=== PATIENT | female | born 1995 | race Caucasian/White ===

== ENCOUNTER 2016-06-29 13:21 | Emergency (ER) | payer BC, MEDICAID, OTHER ==
[2016-06-29] MEDS ORDERED: Sodium Chloride 0.9% 1,000 ML IV ONE (13:27)
[2016-06-29] MEDS ORDERED: Sodium Chloride 0.9% 10 ML Syringe FLUSH PRN (13:27)
[2016-06-29] MEDS ORDERED: Sodium Chloride 0.9% 2.5 ML Syringe FLUSH PRN (13:27)
--- NOTE | 2016-06-29 13:27 | EDM.PDOC ---
ED HPI - General Stated Complaint: 3 MONTH PREG AND DEHYDRATED Time Seen by Provider: 06/29/16 13:45 Source of Information: Reports: Patient History Limitations: Reports: No limitations - History of Present Illness INITIAL COMMENTS - FREE TEXT/NARRATIVE: HISTORY AND PHYSICAL: [21-year-old female who felt nauseous and passed out this morning] History of Present Illness: [Patient has seen her [employer] for intake exam and was told to take B12. Appointment is scheduled for the of this month Dr. Llanes She is 3 months into her ] Review of Systems: As per history of present illness and below otherwise all systems reviewed and negative. Past medical history: As per history of present illness and as reviewed below otherwise noncontributory. Surgical history: As per history of present illness and as reviewed below otherwise noncontributory. Social history: No reported history of drug or alcohol abuse. Family history: As per history of present illness and as reviewed below otherwise noncontributory. Physical exam: Alert and oriented, very pale. Answering questions appropriately HEENT: Atraumatic, normocehpalic, pupils reactive, negative for conjunctival pallor or scleral icterus, mucous membranes dry, throat clear, neck supple, nontender, trachea midline. Lungs: Clear to auscultation, breath sounds equal bilaterally, chest non tender. Heart: S1S2, regular, negative for clicks, rubs, or JVD. Abdomen: Soft, nondistended, nontender. Negative for masses or hepatossplenmegaly. Negative for costovertebral tenderness. Pelvis: Stable nontender. 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: Deferred. Rectal: Deferred Extremities: Atraumatic, negative for cords or calf pain. Neurovascular unremarkable. Neuro: Awake, alert, oriented. Cranial nerves II through XII unremarkable. Cerebellum unremarkable. Motor and sensory unremarkable throughout. Exam nonfocal. Diagnostics: [CBC CMP] Therapeutics: [IV fluid, zofran 4 mg] Impression: [Hyperemesis ] Plan: [follow up with Dr. Rodriguez as scheduled] Definitive disposition and diagnosis as appropriate pending reevaluation and review of above. Timing/Duration: Reports: Week(s): Location, : Reports: abdomen, other (nausea) Severity: moderate Improves with: Reports: None Worsens with: Reports: Movement Treatments DIRECTOR VETERINARY: Reports: Other (see below) (Vitamin B12) - Related Data Allergies/ADRs: Allergies Allergy/AdvReac Type Severity Reaction Status Date / Time Latex, Natural Rubber Allergy Swelling Verified 11/10/15 13:22 Home Meds: Home Meds Vits #90/Iron Fum/FA [ Formula] 06/29/16 [History] Past Medical History - Past Health History Medical/Surgical History: Denies Medical/Surgical History - Infectious Disease History Infectious Disease History: Reports: Chicken pox, Mononucleosis Social & Family History - Family History Family Medical History: Noncontributory - Tobacco Use Smoking Status *Q: Never Smoker Second Hand Smoke Exposure: Yes - Recreational Drug Use Recreational Drug Use: No ED ROS GENERAL - Review of Systems Review Of Systems: ROS reveals no pertinent complaints other than HPI. ED EXAM - Physical Exam Exam: See Below (see dictation) Course - Vital Signs Last Recorded V/S: Last Vital Signs Temp 36.4 C 06/29/16 13:50 Pulse 78 06/29/16 13:50 Resp 18 06/29/16 13:50 BP 113/84 06/29/16 13:50 Pulse Ox 100 06/29/16 13:50 - Orders/Labs/Meds Orders: Active Orders 24 hr Category Date Time Status Sodium Chloride 0.9% [Saline Flush] Med 06/29/16 13:27 Active 10 ml FLUSH ASDIRECTED PRN Sodium Chloride 0.9% [Saline Flush] Med 06/29/16 13:27 Active 2.5 ml FLUSH ASDIRECTED PRN Saline Lock Insert [OM.PC] Stat Oth 06/29/16 13:27 Ordered Medication Orders Sodium Chloride (Saline Flush) 10 ml FLUSH ASDIRECTED PRN PRN Reason: Keep Vein Open Sodium Chloride (Saline Flush) 2.5 ml FLUSH ASDIRECTED PRN PRN Reason: Keep Vein Open Labs: Laboratory Tests 06/29/16 06/29/16 Range/Units 13:59 13:59 WBC 7.25 (4.0-11.0) K/uL RBC 4.50 (4.30-5.90) M/uL Hgb 12.7 (12.0-16.0) g/dL Hct 38.7 (36.0-46.0) % MCV 86.0 (80.0-98.0) fL MCH 28.2 (27.0-32.0) pg MCHC 32.8 (31.0-37.0) g/dL RDW Std Deviation 42.5 (28.0-62.0) fl RDW Coeff of Kiara 14 (11.0-15.0) % Plt Count 262 (150-400) K/uL MPV 10.40 (7.40-12.00) fL Neut % (Auto) 63.5 (48.0-80.0) % Lymph % (Auto) 29.0 (16.0-40.0) % [place] % (Auto) 6.8 (0.0-15.0) % Eos % (Auto) 0.6 (0.0-7.0) % Baso % (Auto) 0.1 (0.0-1.5) % Neut # 4.6 (1.4-5.7) K/uL Lymph # 2.1 (0.6-2.4) K/uL [place] # 0.5 (0.0-0.8) K/uL Eos # 0.0 (0.0-0.7) K/uL Baso # 0.0 (0.0-0.1) K/uL Nucleated RBC % 0.0 /100WBC Nucleated RBCs # 0 K/uL Sodium 134 L (136-146) mmol/L Potassium 4.1 (3.5-5.1) mmol/L Chloride 104 (98-110) mmol/L Carbon Dioxide 21 (21-31) mmol/L BUN 10 (6.0-23.0) mg/dL Creatinine 0.7 (0.6-1.5) mg/dL Est Cr Clr Drug Dosing TNP Estimated GFR (MDRD) > 60.0 ml/min Glucose 83 (60-110) mg/dL Calcium 9.4 (8.8-10.8) mg/dL Total Bilirubin 0.3 (0.1-1.5) mg/dL AST 20 (5-40) IU/L ALT 24 (8-54) IU/L Alkaline Phosphatase 57 (40-150) Total Protein 7.5 (6.0-8.0) g/dL Albumin 4.0 (3.5-5.0) g/dL Globulin 3.5 (2.0-3.5) g/dL Albumin/Globulin Ratio 1.1 L (1.3-2.8) Meds: Medications Generic Name Dose Route Start Last Admin Trade Name Freq PRN Reason Stop Dose Admin Sodium Chloride 10 ml 06/29/16 13:27 Saline Flush FLUSH ASDIRECTED PRN Keep Vein Open Sodium Chloride 2.5 ml 06/29/16 13:27 Saline Flush FLUSH ASDIRECTED PRN Keep Vein Open Discontinued Medications Generic Name Dose Route Start Last Admin Trade Name Freq PRN Reason Stop Dose Admin Sodium Chloride 1,000 mls @ 999 mls/hr 06/29/16 13:27 06/29/16 13:59 Normal Saline IV 06/29/16 14:27 999 mls/hr STAT ONE Administration Ondansetron HCl 4 mg 06/29/16 13:45 06/29/16 13:59 Zofran IVPUSH 06/29/16 13:46 4 mg ONETIME ONE Administration Departure - Departure Time of Disposition: 14:52 Disposition: Home, Self-Care 01 Condition: good Clinical Impression: Hyperemesis gravidarum Instructions: Dehydration, Adult, [id number] Additional Instructions: The following information is given to patients seen in the emergency department who are being discharged to home. This information is to outline your options for follow-up care. We provide all patients seen in our emergency department with a follow-up referral. The need for follow-up, as well as the timing and circumstances, are variable depending upon the specifics of your emergency department visit. If you don't have a primary care physician on staff, we will provide you with a referral. We always advise you to contact your personal physician following an emergency department visit to inform them of the circumstance of the visit and for follow-up with them and/or the need for any referrals to a consulting specialist. The emergency department will also refer you to a specialist when appropriate. This referral assures that you have the opportunity for followup care with a specialist. All of these measure are taken in an effort to provide you with optimal care, which includes your followup. Under all circumstances we always encourage you to contact your private physician who remains a resource for coordinating your care. When calling for followup care, please make the office aware that this follow-up is from your recent emergency room visit. If for any reason you are refused follow-up, please contact the [facility] emergency department at and asked to speak to the emergency department charge nurse. Small sips every 20 minutes to 4 times a day Followup with Dr. Meza as scheduled on the . - My Orders Last 24 Hours: My Active Orders 06/29/16 13:27 Sodium Chloride 0.9% [Saline Flush] 10 ml FLUSH ASDIRECTED PRN Sodium Chloride 0.9% [Saline Flush] 2.5 ml FLUSH ASDIRECTED PRN Saline Lock Insert [OM.PC] Stat - Assessment/Plan Last 24 Hours: My Active Orders 06/29/16 13:27 Sodium Chloride 0.9% [Saline Flush] 10 ml FLUSH ASDIRECTED PRN Sodium Chloride 0.9% [Saline Flush] 2.5 ml FLUSH ASDIRECTED PRN Saline Lock Insert [OM.PC] Stat
[2016-06-29] MEDS ORDERED: Ondansetron 4 MG/2 ML SDV IVPUSH ONE (13:45)
[2016-06-29 14:29] LABS: CHLORIDE,CL 104 mmol/L (98-110); SODIUM,NA 134 mmol/L (136-146)
[2016-06-29 15:05] VITALS: BP 110/64
== END 2016-06-29 15:03 | disposition home or self-care (01) ==
LOC: MW.ED 13:21
DX: O21.0 Mild hyperemesis gravidarum (principal); Z91.040 Latex allergy status; Z3A.15 15 weeks gestation of pregnancy
CPT/HCPCS: 80053; 85025; 96361; 96374; 99284; J2405; J7040

== ENCOUNTER 2016-12-15 17:17 | Emergency (ER) | payer MEDICAID ==
--- NOTE | 2016-12-15 17:58 | EDM.PDOC ---
<Enrico Eric - Last Filed: 12/15/16 19:00> ED HPI GENERAL MEDICAL PROBLEM - General Chief Complaint: Chest Pain Stated Complaint: PT SICK Time Seen by Provider: 12/15/16 17:20 Source of Information: Reports: Patient History Limitations: Reports: No Limitations - History of Present Illness INITIAL COMMENTS - FREE TEXT/NARRATIVE: HISTORY AND PHYSICAL: History of present illness: This is a 21-year-old female at 36 weeks presenting to the emergency department with a chief complaint of shortness of breath. Onset since last night. Patient tells me that she get a B12 injection at her outpatient clinic and is shortness of breath along the chest pain began shortly thereafter. She tells me that she has been experiencing this discomfort and shortness of breath persistently since last night. She tells me that this is beyond her baseline shortness of breath. She declines any fevers, chills cough congestion nausea or vomiting. She has no other complaints. She denies any numbness or tingling. Review of systems: As per history of present illness and below otherwise all systems reviewed and negative. Past medical history: As per history of present illness and as reviewed below otherwise noncontributory. Surgical history: As per history of present illness and as reviewed below otherwise noncontributory. Social history: No reported history of drug or alcohol abuse. Family history: As per history of present illness and as reviewed below otherwise noncontributory. Physical exam: HEENT: Atraumatic, normocephalic, pupils reactive, negative for conjunctival pallor or scleral icterus, mucous membranes moist, throat clear, neck supple, nontender, trachea midline. Lungs: Clear to auscultation, breath sounds equal bilaterally, chest nontender. Heart: S1S2, negative for clicks, rubs, or JVD. Tachycardic Abdomen: Soft, nondistended, nontender. Negative for masses or hepatosplenomegaly. Negative for costovertebral tenderness. Pelvis: Stable nontender. 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: Deferred. Rectal: Deferred. Extremities: Atraumatic, negative for cords or calf pain. Neurovascular unremarkable. Neuro: Awake, alert, oriented. Cranial nerves II through XII unremarkable. Cerebellum unremarkable. Motor and sensory unremarkable throughout. Exam nonfocal. Diagnostics: CBC CMP troponin EKG BNP UA CT angiogram of the chest EKG: Sinus tachycardia Therapeutics: Impression: Plan: [] Definitive disposition and diagnosis as appropriate pending reevaluation and review of above. 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 Other OB/BYN History: gestational diabetes Hematologic History: Reports: Anemia, B12 Deficiency, Iron Deficiency - Infectious Disease History Infectious Disease History: Reports: Mononucleosis Social & Family History - Family History Family Medical History: Noncontributory - Tobacco Use Smoking Status *Q: Never Smoker Second Hand Smoke Exposure: No - Caffeine Use Caffeine Use: Reports: None - Recreational Drug Use Recreational Drug Use: No Course - Vital Signs Last Recorded V/S: Last Vital Signs Temp 97.4 F 12/15/16 17:25 Pulse 68 12/15/16 20:00 Resp 18 12/15/16 20:00 BP 105/69 12/15/16 20:00 Pulse Ox 97 12/15/16 20:00 - Orders/Labs/Meds Orders: Active Orders 24 hr Category Date Time Status EKG 12 Lead [EKG Documentation Completion] [RC] STAT Care 12/15/16 18:16 Active EKG Documentation Completion [RC] STAT Care 12/15/16 17:40 Active Ang Chest [CT] Stat Exams 12/15/16 17:52 Taken UA W/MICROSCOPIC [URIN] Stat Lab 12/15/16 20:10 Results Labs: Laboratory Tests 12/15/16 12/15/16 12/15/16 Range/Units 18:06 18:06 18:06 WBC 8.43 (4.0-11.0) K/uL RBC 3.41 L (4.30-5.90) M/uL Hgb 9.6 L (12.0-16.0) g/dL Hct 29.5 L (36.0-46.0) % MCV 86.5 (80.0-98.0) fL MCH 28.2 (27.0-32.0) pg MCHC 32.5 (31.0-37.0) g/dL RDW Std Deviation 44.7 (28.0-62.0) fl RDW Coeff of Kiara 15 (11.0-15.0) % Plt Count 225 (150-400) K/uL MPV 10.80 (7.40-12.00) fL Neut % (Auto) 72.6 (48.0-80.0) % Lymph % (Auto) 19.5 (16.0-40.0) % [place] % (Auto) 7.6 (0.0-15.0) % Eos % (Auto) 0.2 (0.0-7.0) % Baso % (Auto) 0.1 (0.0-1.5) % Neut # (Auto) 6.1 H (1.4-5.7) K/uL Lymph # (Auto) 1.6 (0.6-2.4) K/uL [place] # (Auto) 0.6 (0.0-0.8) K/uL Eos # (Auto) 0.0 (0.0-0.7) K/uL Baso # (Auto) 0.0 (0.0-0.1) K/uL Nucleated RBC % 0.0 /100WBC Nucleated RBCs # 0 K/uL INR 0.91 (0.86-1.11) Sodium 136 (136-146) mmol/L Potassium 4.0 (3.5-5.1) mmol/L Chloride 107 (98-110) mmol/L Carbon Dioxide 22 (21-31) mmol/L BUN 7 (6.0-23.0) mg/dL Creatinine 0.6 (0.6-1.5) mg/dL Est Cr Clr Drug Dosing 147.10 mL/min Estimated GFR (MDRD) > 60.0 ml/min Glucose 87 (60-110) mg/dL Calcium 9.1 (8.8-10.8) mg/dL Total Bilirubin 0.3 (0.1-1.5) mg/dL AST 16 (5-40) IU/L ALT 12 (8-54) IU/L Alkaline Phosphatase 114 (40-150) Troponin I (0.0-0.29) NG/ML B-Natriuretic Peptide (<100) PG/ML Total Protein 6.6 (6.0-8.0) g/dL Albumin 3.3 L (3.5-5.0) g/dL Globulin 3.3 (2.0-3.5) g/dL Albumin/Globulin Ratio 1.0 L (1.3-2.8) Lipase 68 (7-80) U/L Urine Color Urine Appearance Urine pH (5.0-8.0) Ur Specific [place] (1.001-1.035) Urine Protein (NEGATIVE) mg/dL Urine Glucose (UA) (NEGATIVE) mg/dL Urine Ketones (NEGATIVE) mg/dL Urine Occult Blood (NEGATIVE) Urine Nitrite (NEGATIVE) Urine Bilirubin (NEGATIVE) Urine Urobilinogen (<2.0) EU/dL Ur Leukocyte Esterase (NEGATIVE) 12/15/16 12/15/16 12/15/16 Range/Units 18:06 18:06 20:10 WBC (4.0-11.0) K/uL RBC (4.30-5.90) M/uL Hgb (12.0-16.0) g/dL Hct (36.0-46.0) % MCV (80.0-98.0) fL MCH (27.0-32.0) pg MCHC (31.0-37.0) g/dL RDW Std Deviation (28.0-62.0) fl RDW Coeff of Kiara (11.0-15.0) % Plt Count (150-400) K/uL MPV (7.40-12.00) fL Neut % (Auto) (48.0-80.0) % Lymph % (Auto) (16.0-40.0) % [place] % (Auto) (0.0-15.0) % Eos % (Auto) (0.0-7.0) % Baso % (Auto) (0.0-1.5) % Neut # (Auto) (1.4-5.7) K/uL Lymph # (Auto) (0.6-2.4) K/uL [place] # (Auto) (0.0-0.8) K/uL Eos # (Auto) (0.0-0.7) K/uL Baso # (Auto) (0.0-0.1) K/uL Nucleated RBC % /100WBC Nucleated RBCs # K/uL INR (0.86-1.11) Sodium (136-146) mmol/L Potassium (3.5-5.1) mmol/L Chloride (98-110) mmol/L Carbon Dioxide (21-31) mmol/L BUN (6.0-23.0) mg/dL Creatinine (0.6-1.5) mg/dL Est Cr Clr Drug Dosing mL/min Estimated GFR (MDRD) ml/min Glucose (60-110) mg/dL Calcium (8.8-10.8) mg/dL Total Bilirubin (0.1-1.5) mg/dL AST (5-40) IU/L ALT (8-54) IU/L Alkaline Phosphatase (40-150) Troponin I < 0.10 (0.0-0.29) NG/ML B-Natriuretic Peptide 105 H (<100) PG/ML Total Protein (6.0-8.0) g/dL Albumin (3.5-5.0) g/dL Globulin (2.0-3.5) g/dL Albumin/Globulin Ratio (1.3-2.8) Lipase (7-80) U/L Urine Color YELLOW Urine Appearance CLEAR Urine pH 8.0 (5.0-8.0) Ur Specific [place] 1.010 (1.001-1.035) Urine Protein NEGATIVE (NEGATIVE) mg/dL Urine Glucose (UA) NEGATIVE (NEGATIVE) mg/dL Urine Ketones 40 H (NEGATIVE) mg/dL Urine Occult Blood NEGATIVE (NEGATIVE) Urine Nitrite NEGATIVE (NEGATIVE) Urine Bilirubin NEGATIVE (NEGATIVE) Urine Urobilinogen 0.2 (<2.0) EU/dL Ur Leukocyte Esterase NEGATIVE (NEGATIVE) Meds: Medications Discontinued Medications Generic Name Dose Route Start Last Admin Trade Name Freq PRN Reason Stop Dose Admin Iopamidol 50 ml 12/15/16 18:36 12/15/16 18:37 Isovue Multipack-370 (76%) IVPUSH 12/15/16 18:37 50 ml ONETIME STA Administration Departure - Departure Disposition: Home, Self-Care 01 Clinical Impression: , Dyspnea - Discharge Information Forms: ED Department Discharge Additional Instructions: follow up with Dr Rodriguez as scheduled recheck promptly for worsening lay down on your left side if you feel light headed or short of breath. Keny Jerez MD <Keny Jerez - Last Filed: 12/15/16 20:36> ED ROS GENERAL - Review of Systems Review Of Systems: See Below (as per Dr Ruiz note) ED EXAM, GENERAL - Physical Exam Exam: See Below Free Text/Narrative:: as per Dr Ruiz's note Course - Re-Assessments/Exams Free Text/Narrative Re-Assessment/Exam: 12/15/16 20:33 I received a report from DR Lyles at about 1900. She reports that she feels normal movement now. I discussed with her regarding the normal chest CT findings. She verbalizes understanding. impression: dyspnea related to third trimester Departure - Departure Time of Disposition: 20:35 Condition: Good
[2016-12-15] MEDS ORDERED: Iopamidol 755 MG/ML 500 ML Multipack Bottle IVPUSH STA (18:36)
[2016-12-15 18:38] LABS: CHLORIDE,CL 107 mmol/L (98-110); SODIUM,NA 136 mmol/L (136-146)
[2016-12-15 21:12] VITALS: BP 106/62
--- NOTE | 2016-12-18 10:17 | CT ---
EXAM DATE: 12/15/16 PATIENT'S AGE: 21 Patient: VIRGEN CARRIZALES Facility: [place], [place] Site . Site : 1995 Study: CT Chest Angio [id number]/[id number] 7:06:50 PM Ordering Physician: Hernesto Weston Final Report: INDICATION: Chest discomfort. Rule out pulmonary embolism. 8 months . TECHNIQUE: Volumetric helical scanning of the thorax was performed during infusion of 50 cc of Isovue 370 contrast material IV, timing optimized for pulmonary arterial opacification. Coronal and sagittal reconstructions were obtained. COMPARISON: None. FINDINGS: The images are of acceptable quality and demonstrate uniform vascular enhancement within the pulmonary arteries. No pulmonary arterial filling defect is identified. The lungs are clear. No pleural effusion is demonstrated. No airway abnormality is evident. No mediastinal or hilar lymphadenopathy is demonstrated. The heart size is normal. Images of the upper abdomen are unremarkable. IMPRESSION: Negative chest CT. No evidence of pulmonary embolism and pneumonia. Please note that all CT scans at this facility use dose modulation, iterative reconstruction, and/or weight-based dosing when appropriate to reduce radiation dose to as low as reasonably achievable. Dictated by Jono Maldonado MD @ Dec 15 2016 7:26PM (Electronic Signature) Report Signed by Proxy. SAMMI
== END 2016-12-15 20:55 | disposition home or self-care (01) ==
LOC: MW.ED 17:17
DX: O99.89 Other specified diseases and conditions complicating pregnancy, childbirth and the puerperium (principal); R06.02 Shortness of breath; Z91.040 Latex allergy status; Z86.2 Personal history of diseases of the blood and blood-forming organs and certain disorders involving the immune mechanism; Z3A.36 36 weeks gestation of pregnancy
CPT/HCPCS: 71275; 80053; 81001; 83690; 83880; 84484; 85025; 85610; 93005; 99285; Q9967; 99283

== ENCOUNTER 2017-01-03 17:01 | Inpatient (IN) | payer MEDICAID, OTHER ==
[2017-01-03] MEDS ORDERED: Sodium Chloride 0.9% 2.5 ML Syringe FLUSH PRN (17:36)
[2017-01-03] MEDS ORDERED: Water For Irrigation,Sterile 1,000 ML Container IRR PRN (17:36)
[2017-01-03] MEDS ORDERED: Terbutaline 1 MG/ML SDV SUBCUT PRN (17:36)
[2017-01-03] MEDS ORDERED: Methylergonovine 0.2 MG/1 ML Amp IM PRN (17:36)
[2017-01-03] MEDS ORDERED: Lidocaine 1% 50 ML MDV INJECT PRN (17:36)
[2017-01-03] MEDS ORDERED: Misoprostol 200 MCG Tab PO PRN (17:36)
[2017-01-03] MEDS ORDERED: Carboprost Tromethamine 250 MCG/1 ML Amp IM PRN (17:36)
[2017-01-03] MEDS ORDERED: Sodium Chloride 0.9% 10 ML Syringe FLUSH PRN (17:36)
[2017-01-03] MEDS ORDERED: Misoprostol 25 MCG (1/4 of 100 MCG) Tab VAG PRN (17:36)
[2017-01-03] MEDS ORDERED: Misoprostol 25 MCG (1/4 of 100 MCG) Tab VAG SCH (17:45)
[2017-01-03] MEDS ORDERED: Oxytocin/Lactated Ringers 30 UNIT/500 ML BAG IV SCH ×2 (17:45)
[2017-01-03] MEDS: Lactated Ringers 1,000 ML IV SCH ×2 (18:20→23:22)
[2017-01-04] MEDS: Butorphanol 1 MG/ML SDV IVPUSH PRN ×2 (02:25→04:17)
[2017-01-04] MEDS: Lactated Ringers 1,000 ML IV SCH ×3 (04:19→05:51)
[2017-01-04] MEDS ORDERED: fentaNYL 100 MCG/2 ML SDV ONE (04:26)
[2017-01-04] MEDS ORDERED: Ropivacaine 0.2% 2 MG/ML 20 ML SDV ONE (04:26)
[2017-01-04] MEDS ORDERED: Ropivacaine HCl/PF 100 ML ONE (04:26)
--- NOTE | 2017-01-04 05:17 | PCM.PREANE ---
Preanesthetic Assessment - Procedure Proposed Procedure: Labor Epidural - Anesthesia/Transfusion/Family Hx Anesthesia History: Prior Anesthesia Without Reaction Family History of Anesthesia Reaction: No Transfusion History: No Prior Transfusion(s) Intubation History: Unknown - Review of Systems General: No Symptoms Pulmonary: No Symptoms Cardiovascular: No Symptoms Gastrointestinal: No Symptoms Neurological: No Symptoms Other: Reports: Anxiety - Physical Assessment Pulse: 81 O2 Sat by Pulse Oximetry: 99 Respiratory Rate: 20 Blood Pressure: 128/81 Temperature: 36.2 F Height: 5 ft 7.5 in Weight: 74.843 kg ASA Class: 2 Mental Status: Alert & Oriented x3 Airway Class: Mallampati = 2 Dentition: Reports: Normal Dentition Thyro-Mental Finger Breadths: 3 Mouth Opening Finger Breadths: 3 ROM/Head Extension: Full Lungs: Clear to Auscultation, Normal Respiratory Effort Cardiovascular: Regular Rate, Regular Rhythm - Lab Values: Laboratory Last Values WBC 8.10 K/uL (4.0-11.0) 01/03/17 18:09 RBC 3.58 M/uL (4.30-5.90) L 01/03/17 18:09 Hgb 10.0 g/dL (12.0-16.0) L 01/03/17 18:09 Hct 30.5 % (36.0-46.0) L 01/03/17 18:09 MCV 85.2 fL (80.0-98.0) 01/03/17 18:09 MCH 27.9 pg (27.0-32.0) 01/03/17 18:09 MCHC 32.8 g/dL (31.0-37.0) 01/03/17 18:09 RDW Std Deviation 44.7 fl (28.0-62.0) 01/03/17 18:09 RDW Coeff of Kiara 14 % (11.0-15.0) 01/03/17 18:09 Plt Count 247 K/uL (150-400) 01/03/17 18:09 MPV 11.50 fL (7.40-12.00) 01/03/17 18:09 Nucleated RBC % 0.0 /100WBC 01/03/17 18:09 Nucleated RBCs # 0 K/uL 01/03/17 18:09 POC Glucose 76 mg/dL (60-110) 01/04/17 01:41 Blood Type O POSITIVE 01/03/17 18:09 Antibody Screen NEGATIVE 01/03/17 18:09 - Allergies Allergies/Adverse Reactions: Allergies Allergy/AdvReac Type Severity Reaction Status Date / Time Latex, Natural Rubber Allergy Swelling Verified 12/15/16 17:46 - Blood Blood Available: No - Acknowledgements Anesthesia Type Planned: Epidural Pt an Appropriate Candidate for the Planned Anesthesia: Yes Alternatives and Risks of Anesthesia Discussed w Pt/Guardian: Yes Pt/Guardian Understands and Agrees with Anesthesia Plan: Yes PreAnesthesia Questionnaire - Past Health History Medical/Surgical History: Denies Medical/Surgical History 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: , 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 Other OB/BYN History: gestational diabetes Hematologic History: Reports: Anemia, B12 Deficiency, Iron Deficiency - Infectious Disease History Infectious Disease History: Reports: Mononucleosis - Past Surgical History Musculoskeletal Surgical History: Reports: Other (See Below) Other Musculoskeletal Surgeries/Procedures:: history of back fracture that healed on its own - SUBSTANCE USE Smoking Status *Q: Never Smoker Second Hand Smoke Exposure: No Recreational Drug Use History: No - HOME MEDS Home Medications: Home Meds Vit 90/Iron Fum/Folic [ Formula] 1 tab PO DAILY 06/29/16 [ History] - CURRENT (IN HOUSE) MEDS Current Meds: Current Medications Butorphanol Tartrate (Stadol) 1 mg IVPUSH Q1H PRN PRN Reason: Pain Last Admin: 01/04/17 04:17 Dose: 1 mg Carboprost Tromethamine (Hemabate Ds) 250 mcg IM ASDIRECTED PRN PRN Reason: Post Hemorrhage Lactated Ringer's (Ringers, Lactated) 1,000 mls @ 150 mls/hr IV ASDIRECTED MICHELLE Last Admin: 01/04/17 04:30 Dose: 150 mls/hr Oxytocin/Lactated Ringer's (Pitocin In Lr 30 Units/500 Ml) 30 unit in 500 mls @ 2 mls/hr IV TITRATE MICHELLE; 2 MUNITS/MIN PRN Reason: Protocol Lidocaine HCl (Xylocaine 1%) 50 ml INJECT .ONCE PRN PRN Reason: Laceration repair Methylergonovine Maleate (Methergine) 0.2 mg IM ASDIRECTED PRN PRN Reason: Post Hemorrhage Misoprostol (Cytotec) 200 mcg PO .ONCE PRN PRN Reason: Post Hemorrhage Misoprostol (Cytotec) 25 mcg VAG .ONCE MICHELLE Last Admin: 01/03/17 18:41 Dose: 25 mcg Misoprostol (Cytotec) 25 mcg VAG Q6H PRN PRN Reason: Cervical Ripening Last Admin: 01/04/17 00:45 Dose: 25 mcg Sodium Chloride (Saline Flush) 10 ml FLUSH ASDIRECTED PRN PRN Reason: Keep Vein Open Sodium Chloride (Saline Flush) 2.5 ml FLUSH ASDIRECTED PRN PRN Reason: Keep Vein Open Sterile Water (Sterile Water For Irrigation) 1,000 ml IRR ASDIRECTED PRN PRN Reason: delivery Terbutaline Sulfate (Brethine) 0.25 mg SUBCUT ASDIRECTED PRN PRN Reason: Tacysystole Discontinued Medications Fentanyl (Sublimaze) Confirm Administered Dose 200 mcg .ROUTE .STK-MED ONE Stop: 01/04/17 04:27 Oxytocin/Lactated Ringer's (Pitocin In Lr 30 Units/500 Ml) 30 unit in 500 mls @ 999 mls/hr IV TITRATE MICHELLE PRN Reason: 999 MUNITS/MIN Stop: 01/03/17 18:16 Ropivacaine (Naropin 0.2%) Confirm Administered Dose 100 mls @ as directed .ROUTE .STK-MED ONE Stop: 01/04/17 04:27 Ropivacaine (Naropin 0.2%) Confirm Administered Dose 20 ml .ROUTE .STK-MED ONE Stop: 01/04/17 04:27
[2017-01-04] MEDS ORDERED: Methylergonovine 0.2 MG/1 ML Amp IM PRN (09:48)
[2017-01-04] MEDS ORDERED: Docusate Sodium 100 MG Cap PO PRN (09:48)
[2017-01-04] MEDS ORDERED: Ibuprofen 800 MG Tab PO PRN (09:48)
[2017-01-04] MEDS ORDERED: Bisacodyl 10 MG Supp RECTAL PRN (09:48)
[2017-01-04] MEDS ORDERED: Lanolin 100% Cream 7 GM Tube TOP PRN (09:48)
[2017-01-04] MEDS ORDERED: Ondansetron 4 MG/2 ML SDV IVPUSH PRN (10:37)
[2017-01-04] MEDS: Benzocaine/Menthol 20%-0.5% Spray 78 GM Cannister TOP PRN (14:05)
--- NOTE | 2017-01-04 14:43 | OR ---
SURGEON: Gianna Rodriguez M.D. DATE OF PROCEDURE: 01/04/2017 PREOPERATIVE DIAGNOSIS: A 39 and 1/7th week intrauterine , gestational diabetes type A1. POSTOPERATIVE DIAGNOSIS: A 39 and 1/7th week intrauterine , gestational diabetes type A1. PROCEDURE: Cytotec and Pitocin induction of labor, term spontaneous vaginal delivery, repair of vaginal laceration. NATURAL SCIENCES MANAGER: Jay Mcintosh MS-4. ANESTHESIA: Epidural. ESTIMATED BLOOD LOSS: Less than 300 mL. FINDINGS: Live born male, score 8 and 8, weighing 3150 g. Placenta spontaneous. Schultze intact with 3 vessels. There was a vaginal laceration at the 5 o'clock position. COMPLICATIONS: None known. DISPOSITION: Mother and baby are stable in LDRP. BRIEF HISTORY: This is a 21-year-old female. She is G1, P0. She presents at 39 weeks' gestation for induction of labor due to gestational diabetes type A1, which has been diet controlled. She received Cytotec vaginally. This caused her to progress into labor. She received an epidural when she was 2-3 cm dilated. She had category 1 heart tones. She was 4 cm by 5:00 a.m., and by 8:00 a.m., was complete with bulging membranes, which were then ruptured. DESCRIPTION OF PROCEDURE: With the patient in dorsal lithotomy position, the patient pushed over approximately 30 minutes to a 5+ station, at which time the head was delivered spontaneously and atraumatically over the perineum with support with subsequent delivery of the 's shoulders and body without any difficulty. The infant was bulb suctioned by nose and mouth. Cord was clamped x2 and cut and the infant was handed to the mother in the presence of the nurse attending delivery. The was a liveborn male, score 8 and 8, weighing 3150 g. The placenta at this point had already delivered vaginally spontaneously, Schultze intact with 3 vessels. Upon inspection of the pelvis and perineum, there were no periurethral, cervical, rectal, or perineal lacerations. There was a vaginal laceration over the lower vagina transversely and particularly at the 5 o'clock position. There were some areas of bleeding beneath the vaginal mucosa. Figure- of-eight sutures were initially placed to control the bleeding followed by running locked sutures to reapproximate the vaginal tissue and pressure was held for some time and observation of the perineum to ensure that there was no hematoma developing. Once this was confirmed, final sponge, needle, instruments counts were performed and were correct. There were no known complications. The and mother remained in LDRP in good condition. NADINE SINGER /[id number]
[2017-01-04] MEDS: oxyCODONE 5 MG Tab PO PRN ×2 (17:20→20:26)
--- NOTE | 2017-01-04 18:52 | PCM48HPAN ---
Post Anesthesia Note - EVALUATION WITHIN 48HRS OF ANESTHETIC Vital Signs in Normal Range: Yes Patient Participated in Evaluation: Yes Respiratory Function Stable: Yes Airway Patent: Yes Cardiovascular Function Stable: Yes Hydration Status Stable: Yes Pain Control Satisfactory: Yes Nausea and Vomiting Control Satisfactory: Yes Mental Status Recovered: Yes
[2017-01-04] MEDS: Witch Hazel Medicated Pads 40/Jar TOP PRN (20:25)
[2017-01-04] MEDS: Acetaminophen 500 MG Tab PO PRN (20:26)
[2017-01-05] MEDS: Acetaminophen 500 MG Tab PO PRN (05:52)
[2017-01-05] MEDS: oxyCODONE 5 MG Tab PO PRN ×2 (05:53→10:35)
[2017-01-05 05:55] LABS: CHLORIDE,CL 108 mmol/L (98-110); SODIUM,NA 138 mmol/L (136-146)
--- NOTE | 2017-01-05 08:13 | PCM.PNPP ---
<Jay Hart - Last Filed: 01/05/17 08:07> - General Info Date of Service: 01/05/17 Admission Dx/Problem (Free Text): 21 y.o. female, 39/3 EGA, Induction of labor due to gestational diabetes Subjective Update: Pain has been well controlled with tylenol and oxycodone. Pain is related to vaginal laceration. Having nipple soreness with which is otherwise going well. No difficulties urinating. Has not had a bowel movement yet. Lochia is decreasing. Pt denies foul smelling lochia, fever, chills, chest pain, or shortness of breath. Functional Status: Reports: Pain Controlled, Tolerating Diet, Ambulating, Urinating - Review of Systems General: Reports: No Symptoms Cardiovascular: Reports: No Symptoms Gastrointestinal: Reports: No Symptoms 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: Reports: No Symptoms - General Info Date of Service: 01/05/17 - Patient Data Vital Signs - Most Recent: Last Vital Signs Temp 37.3 C 01/05/17 06:18 Pulse 61 01/05/17 06:18 Resp 18 01/05/17 06:18 BP 106/70 01/05/17 06:18 Pulse Ox 98 01/05/17 06:18 Weight - Most Recent: 74.843 kg Lab Results - Last 24 Hours: Laboratory Results - last 24 hr 01/05/17 01/05/17 Range/Units 05:15 05:15 Hgb 8.8 L (12.0-16.0) g/dL Hct 27.1 L (36.0-46.0) % Sodium 138 (136-146) mmol/L Potassium 4.2 (3.5-5.1) mmol/L Chloride 108 (98-110) mmol/L Carbon Dioxide 24 (21-31) mmol/L BUN 9 (6.0-23.0) mg/dL Creatinine 0.6 (0.6-1.5) mg/dL Est Cr Clr Drug Dosing 144.45 mL/min Estimated GFR (MDRD) > 60.0 ml/min Glucose 82 (60-110) mg/dL Calcium 8.9 (8.8-10.8) mg/dL Med Orders - Current: Current Medications Acetaminophen (Tylenol Extra Strength) 1,000 mg PO Q4H PRN PRN Reason: Pain Last Admin: 01/05/17 05:52 Dose: 1,000 mg Benzocaine/Menthol (Dermoplast Pain Relief 20%-0.5% Hoopa) 78 gm TOP ASDIRECTED PRN PRN Reason: Perineal Comfort Measure Last Admin: 01/04/17 14:05 Dose: 78 gm Bisacodyl (Dulcolax) 10 mg RECTAL .ONCE PRN PRN Reason: Constipation Docusate Sodium (Colace) 100 mg PO BID PRN PRN Reason: Constipation Last Admin: 01/04/17 20:27 Dose: 100 mg Emollient Ointment (Lansinoh Hpa) 0 gm TOP ASDIRECTED PRN PRN Reason: Sore Nipples Last Admin: 01/05/17 04:50 Dose: 7 gm Ibuprofen (Motrin) 800 mg PO Q6H PRN PRN Reason: Pain Last Admin: 01/04/17 14:05 Dose: 800 mg Methylergonovine Maleate (Methergine) 0.2 mg IM .ONCE PRN PRN Reason: Excessive Vaginal Bleeding Ondansetron HCl (Zofran) 4 mg IVPUSH Q6H PRN PRN Reason: Nausea/Vomiting Last Admin: 01/04/17 10:54 Dose: 4 mg Oxycodone HCl (Oxycodone) 5 mg PO Q2H PRN PRN Reason: Pain Last Admin: 01/05/17 05:53 Dose: 5 mg Witch Darlene (Tucks) 1 pad TOP ASDIRECTED PRN PRN Reason: comfort care Last Admin: 01/04/17 20:25 Dose: 1 pad Discontinued Medications Butorphanol Tartrate (Stadol) 1 mg IVPUSH Q1H PRN PRN Reason: Pain Last Admin: 01/04/17 04:17 Dose: 1 mg Carboprost Tromethamine (Hemabate Ds) 250 mcg IM ASDIRECTED PRN PRN Reason: Post Hemorrhage Fentanyl (Sublimaze) Confirm Administered Dose 200 mcg .ROUTE .STK-MED ONE Stop: 01/04/17 04:27 Lactated Ringer's (Ringers, Lactated) 1,000 mls @ 150 mls/hr IV ASDIRECTED MICHELLE Last Admin: 01/04/17 05:51 Dose: 150 mls/hr Oxytocin/Lactated Ringer's (Pitocin In Lr 30 Units/500 Ml) 30 unit in 500 mls @ 999 mls/hr IV TITRATE MICHELLE PRN Reason: 999 MUNITS/MIN Stop: 01/03/17 18:16 Last Admin: 01/04/17 13:22 Dose: Not Given Oxytocin/Lactated Ringer's (Pitocin In Lr 30 Units/500 Ml) 30 unit in 500 mls @ 2 mls/hr IV TITRATE MICHELLE; 2 MUNITS/MIN PRN Reason: Protocol Last Titration: 01/04/17 09:07 Dose: 500 munits/min, 500 mls/hr Ropivacaine (Naropin 0.2%) Confirm Administered Dose 100 mls @ as directed .ROUTE .revoPT-[facility]Nova ONE Stop: 01/04/17 04:27 Lidocaine HCl (Xylocaine 1%) 50 ml INJECT .ONCE PRN PRN Reason: Laceration repair Methylergonovine Maleate (Methergine) 0.2 mg IM ASDIRECTED PRN PRN Reason: Post Hemorrhage Misoprostol (Cytotec) 200 mcg PO .ONCE PRN PRN Reason: Post Hemorrhage Misoprostol (Cytotec) 25 mcg VAG .ONCE MICHELLE Last Admin: 01/03/17 18:41 Dose: 25 mcg Misoprostol (Cytotec) 25 mcg VAG Q6H PRN PRN Reason: Cervical Ripening Last Admin: 01/04/17 00:45 Dose: 25 mcg Ropivacaine (Naropin 0.2%) Confirm Administered Dose 20 ml .ROUTE .STBioCritica-MED ONE Stop: 01/04/17 04:27 Sodium Chloride (Saline Flush) 10 ml FLUSH ASDIRECTED PRN PRN Reason: Keep Vein Open Sodium Chloride (Saline Flush) 2.5 ml FLUSH ASDIRECTED PRN PRN Reason: Keep Vein Open Sterile Water (Sterile Water For Irrigation) 1,000 ml IRR ASDIRECTED PRN PRN Reason: delivery Last Admin: 01/04/17 09:06 Dose: 1,000 ml Terbutaline Sulfate (Brethine) 0.25 mg SUBCUT ASDIRECTED PRN PRN Reason: Tacysystole - Interaction Disposition, : in Room with Family Infant Interaction: Holding Infant Feeding: Breastfed Infant; Nursed Well Support Person: Mother, Significant Other - Recovery Exam Fundal Tone: Firm Fundal Level: 1 Fingerbreadths Above Umbilicus Fundal Placement: Midline Lochia Amount: Scant Lochia Color: Rubra/Red Perineum Description: Intact, Minimal Bruising/Swelling Episiotomy/Laceration: Approximated (Vaginal laceration repaired, no hematoma or erythema) Bladder Status: Voiding Urinary Elimination: Voided - Exam Lungs: Clear to Auscultation, Normal Respiratory Effort. No: Rales, Rhonchi, Rub Cardiovascular: Regular Rate, Regular Rhythm. No: Murmurs, Gallops, Rubs GI/Abdominal Exam: Normal Bowel Sounds, Soft (Uterus midline, firm, one cm above umbilicus), No Distention - Problem List & Annotations (1) Gestational diabetes SNOMED Code(s): 20512970 Code(s): O24.419 - GESTATIONAL DIABETES MELLITUS IN , UNSP CONTROL Status: Acute Current Visit: Yes QualifierTitle: Gestational diabetes mellitus control: diet-controlled Trimester: third trimester Qualified Code(s): O24.410 - Gestational diabetes mellitus in , diet controlled (2) Anemia affecting in third trimester SNOMED Code(s): 59792189, 35002499 Code(s): O99.013 - ANEMIA COMPLICATING , THIRD TRIMESTER Status: Acute Current Visit: Yes (3) Vaginal delivery SNOMED Code(s): 071845189 Code(s): O80 - ENCOUNTER FOR FULL-TERM UNCOMPLICATED DELIVERY Status: Acute Current Visit: Yes - Problem List Review Problem List Initiated/Reviewed/Updated: Yes - Assessment Assessment:: 21 yo female, EGA 39/2, IOL for gestational diabetes Pain is well controlled Urinating Well Vaginal laceration repair is free from hematoma or other complications - Plan Plan:: Continue routine cares. Continue current pain management of tylenol and oxycodone. Continue support of and frequent ambulation. Plan for discharge today. <Gianna Rodriguez - Last Filed: 01/05/17 08:51> - Patient Data Vital Signs - Most Recent: Last Vital Signs Temp 36.6 C 01/05/17 07:50 Pulse 65 01/05/17 07:50 Resp 16 01/05/17 07:50 BP 117/81 01/05/17 07:50 Pulse Ox 98 01/05/17 07:50 Lab Results - Last 24 Hours: Laboratory Results - last 24 hr 01/05/17 01/05/17 Range/Units 05:15 05:15 Hgb 8.8 L (12.0-16.0) g/dL Hct 27.1 L (36.0-46.0) % Sodium 138 (136-146) mmol/L Potassium 4.2 (3.5-5.1) mmol/L Chloride 108 (98-110) mmol/L Carbon Dioxide 24 (21-31) mmol/L BUN 9 (6.0-23.0) mg/dL Creatinine 0.6 (0.6-1.5) mg/dL Est Cr Clr Drug Dosing 144.45 mL/min Estimated GFR (MDRD) > 60.0 ml/min Glucose 82 (60-110) mg/dL Calcium 8.9 (8.8-10.8) mg/dL Med Orders - Current: Current Medications Acetaminophen (Tylenol Extra Strength) 1,000 mg PO Q4H PRN PRN Reason: Pain Last Admin: 01/05/17 05:52 Dose: 1,000 mg Benzocaine/Menthol (Dermoplast Pain Relief 20%-0.5% Hoopa) 78 gm TOP ASDIRECTED PRN PRN Reason: Perineal Comfort Measure Last Admin: 01/04/17 14:05 Dose: 78 gm Bisacodyl (Dulcolax) 10 mg RECTAL .ONCE PRN PRN Reason: Constipation Docusate Sodium (Colace) 100 mg PO BID PRN PRN Reason: Constipation Last Admin: 01/04/17 20:27 Dose: 100 mg Emollient Ointment (Lansinoh Hpa) 0 gm TOP ASDIRECTED PRN PRN Reason: Sore Nipples Last Admin: 01/05/17 04:50 Dose: 7 gm Ibuprofen (Motrin) 800 mg PO Q6H PRN PRN Reason: Pain Last Admin: 01/04/17 14:05 Dose: 800 mg Methylergonovine Maleate (Methergine) 0.2 mg IM .ONCE PRN PRN Reason: Excessive Vaginal Bleeding Ondansetron HCl (Zofran) 4 mg IVPUSH Q6H PRN PRN Reason: Nausea/Vomiting Last Admin: 01/04/17 10:54 Dose: 4 mg Oxycodone HCl (Oxycodone) 5 mg PO Q2H PRN PRN Reason: Pain Last Admin: 01/05/17 05:53 Dose: 5 mg Witch Darlene (Tucks) 1 pad TOP ASDIRECTED PRN PRN Reason: comfort care Last Admin: 01/04/17 20:25 Dose: 1 pad Discontinued Medications Butorphanol Tartrate (Stadol) 1 mg IVPUSH Q1H PRN PRN Reason: Pain Last Admin: 01/04/17 04:17 Dose: 1 mg Carboprost Tromethamine (Hemabate Ds) 250 mcg IM ASDIRECTED PRN PRN Reason: Post Hemorrhage Fentanyl (Sublimaze) Confirm Administered Dose 200 mcg .ROUTE .STK-MED ONE Stop: 01/04/17 04:27 Lactated Ringer's (Ringers, Lactated) 1,000 mls @ 150 mls/hr IV ASDIRECTED MICHELLE Last Admin: 01/04/17 05:51 Dose: 150 mls/hr Oxytocin/Lactated Ringer's (Pitocin In Lr 30 Units/500 Ml) 30 unit in 500 mls @ 999 mls/hr IV TITRATE MICHELLE PRN Reason: 999 MUNITS/MIN Stop: 01/03/17 18:16 Last Admin: 01/04/17 13:22 Dose: Not Given Oxytocin/Lactated Ringer's (Pitocin In Lr 30 Units/500 Ml) 30 unit in 500 mls @ 2 mls/hr IV TITRATE MICHELLE; 2 MUNITS/MIN PRN Reason: Protocol Last Titration: 01/04/17 09:07 Dose: 500 munits/min, 500 mls/hr Ropivacaine (Naropin 0.2%) Confirm Administered Dose 100 mls @ as directed .ROUTE .STBioCritica-MED ONE Stop: 01/04/17 04:27 Lidocaine HCl (Xylocaine 1%) 50 ml INJECT .ONCE PRN PRN Reason: Laceration repair Methylergonovine Maleate (Methergine) 0.2 mg IM ASDIRECTED PRN PRN Reason: Post Hemorrhage Misoprostol (Cytotec) 200 mcg PO .ONCE PRN PRN Reason: Post Hemorrhage Misoprostol (Cytotec) 25 mcg VAG .ONCE MICHELLE Last Admin: 01/03/17 18:41 Dose: 25 mcg Misoprostol (Cytotec) 25 mcg VAG Q6H PRN PRN Reason: Cervical Ripening Last Admin: 01/04/17 00:45 Dose: 25 mcg Ropivacaine (Naropin 0.2%) Confirm Administered Dose 20 ml .ROUTE .STK-MED ONE Stop: 01/04/17 04:27 Sodium Chloride (Saline Flush) 10 ml FLUSH ASDIRECTED PRN PRN Reason: Keep Vein Open Sodium Chloride (Saline Flush) 2.5 ml FLUSH ASDIRECTED PRN PRN Reason: Keep Vein Open Sterile Water (Sterile Water For Irrigation) 1,000 ml IRR ASDIRECTED PRN PRN Reason: delivery Last Admin: 01/04/17 09:06 Dose: 1,000 ml Terbutaline Sulfate (Brethine) 0.25 mg SUBCUT ASDIRECTED PRN PRN Reason: Tacysystole - Problem List Review Problem List Initiated/Reviewed/Updated: Yes - My Orders Last 24 Hours: My Active Orders 01/04/17 09:48 Acetaminophen [Tylenol Extra Strength] 1,000 mg PO Q4H PRN Benzocaine/Menthol [Dermoplast Pain Relief 20%-0.5% Hoopa] 78 gm TOP ASDIRECTED PRN Bisacodyl [Dulcolax] 10 mg RECTAL .ONCE PRN Docusate Sodium [Colace] 100 mg PO BID PRN Ibuprofen [Motrin] 800 mg PO Q6H PRN Lanolin [Lansinoh HPA] See Dose Instructions TOP ASDIRECTED PRN Methylergonovine [Methergine] 0.2 mg IM .ONCE PRN Witch Darlene [Tucks] 1 pad TOP ASDIRECTED PRN oxyCODONE 5 mg PO Q2H PRN Resuscitation Status Routine 01/04/17 09:49 Patient Status [ADT] Routine May Shower [RC] ASDIRECTED Up ad Mercedes [RC] ASDIRECTED Vital Signs [RC] PER UNIT ROUTINE Assess Lochia [WOMSER] Per Unit Routine Assess Uterine Involution [WOMSER] Per Unit Routine Perineal Care [OM.PC] Per Unit Routine Peripheral IV Discontinue [OM.PC] Routine 01/04/17 10:37 Ondansetron [Zofran] 4 mg IVPUSH Q6H PRN 01/04/17 Lunch Regular Diet [DIET] - Plan Plan:: I have examined the patient and agree with above. Perineium examined and appeart normal . She will use Tylenol, Ibuprofen and oxycodone for pain, would like to be discharged today discharge instructions reviewed. She has chronic anemia, will continue on B12 and iron. She will also get 2 hour GTT at 6 weeks , MMR prior to discharge.
[2017-01-05 08:41] VITALS: BP 117/81
[2017-01-05] MEDS ORDERED: Measles, Mumps & Rubella Vaccine 0.5 ML SDV SUBCUT ONE (08:55)
[2017-01-05] MEDS ORDERED: Hydrocortisone 1% Crm 30 GM Tube TOP PRN (08:59)
[2017-01-05] MEDS: Witch Hazel Medicated Pads 40/Jar TOP PRN (11:41)
[2017-01-05] MEDS: Benzocaine/Menthol 20%-0.5% Spray 78 GM Cannister TOP PRN (11:42)
== END 2017-01-05 11:55 | disposition home or self-care (01) | DRG 775 ==
LOC: MW.OBCHECK 17:01 → MW.OB 17:03 → MW.OBCHECK 23:55 → MW.OB 23:56 → OBSVTOIN 01-04 09:06
PROVIDERS: ADMIT Obstetrics & Gynecology; ATTEND Obstetrics & Gynecology
PROC: 10E0XZZ Delivery of Products of Conception, External Approach (ICD-10-PCS; principal; 2017-01-04)
PROC: 3E033VJ Introduction of Other Hormone into Peripheral Vein, Percutaneous Approach (ICD-10-PCS; 2017-01-04)
PROC: 10907ZC Drainage of Amniotic Fluid, Therapeutic from Products of Conception, Via Natural or Artificial Opening (ICD-10-PCS; 2017-01-04)
PROC: 0HQ9XZZ Repair Perineum Skin, External Approach (ICD-10-PCS; 2017-01-04)
PROC: 3E0234Z Introduction of Serum, Toxoid and Vaccine into Muscle, Percutaneous Approach (ICD-10-PCS; 2017-01-05)
DX: O24.420 Gestational diabetes mellitus in childbirth, diet controlled (principal); O70.0 First degree perineal laceration during delivery; Z3A.39 39 weeks gestation of pregnancy; Z37.0 Single live birth; Z23 Encounter for immunization
CPT/HCPCS: 01967; 36415; 59025; 80048; 82962; 84112; 85014; 85018; 85027; 86850; 86900; 86901; 90471; 90707; A9270-GY; J0595; J2405; J2795; J3010; J7120